=== PATIENT | male | born 1995 | race Caucasian/White ===

== ENCOUNTER 2024-01-14 18:06 | Emergency (ER) | payer OTHER ==
[~2024-01-14] VITALS: Ht 182.9 cm; Wt 63.6 kg
[2024-01-14] MEDS ORDERED: CLON0.2T (18:20)
[2024-01-14] MEDS ORDERED: TRAZ1TAB14 (18:20)
[2024-01-14] MEDS ORDERED: ONDA-284 (18:20)
[2024-01-14] MEDS ORDERED: FLUO-365 (18:20)
[2024-01-14] MEDS ORDERED: GABA-1171 (18:20)
[2024-01-14 23:00] VITALS: BP 135/81; TEMP 98; O2SAT 99
== END 2024-01-14 23:51 | disposition home or self-care (01) ==
LOC: M ED 18:06
DX: S92.325A Nondisplaced fracture of second metatarsal bone, left foot, initial encounter for closed fracture (principal); S92.332A Displaced fracture of third metatarsal bone, left foot, initial encounter for closed fracture; S92.342A Displaced fracture of fourth metatarsal bone, left foot, initial encounter for closed fracture; Y92.019 Unspecified place in single-family (private) house as the place of occurrence of the external cause; Y93.9 Activity, unspecified; Y99.9 Unspecified external cause status; W01.0XXA Fall on same level from slipping, tripping and stumbling without subsequent striking against object, initial encounter; F15.10 Other stimulant abuse, uncomplicated; Z88.8 Allergy status to other drugs, medicaments and biological substances; Z91.040 Latex allergy status; Z91.013 Allergy to seafood; Z79.899 Other long term (current) drug therapy

== ENCOUNTER → 2024-01-26 | Outpatient (CLI) | payer OTHER ==
[~2024-01-26] MED LIST: CLON0.2T; FLUO-365; GABA-1171; ONDA-284; TRAZ1TAB14
== END ==
LOC: M SOG 07:33
PROVIDERS: ATTEND Physician Assistant
DX: M79.672 Pain in left foot (principal)

== ENCOUNTER → 2024-03-15 | Outpatient (CLI) | payer OTHER | LOC: M SOG 07:54 | PROVIDERS: ATTEND Physician Assistant | DX: M79.672 Pain in left foot (principal) ==

== ENCOUNTER → 2024-03-22 | Outpatient (CLI) | payer OTHER | LOC: M SOG 07:52 | PROVIDERS: ATTEND Physician Assistant | DX: M79.672 Pain in left foot (principal) ==

== ENCOUNTER → 2024-04-10 | Outpatient (CLI) | payer OTHER | LOC: M SOG 07:38 | PROVIDERS: ATTEND Physician Assistant | DX: M79.672 Pain in left foot (principal); S92.325D Nondisplaced fracture of second metatarsal bone, left foot, subsequent encounter for fracture with routine healing; S92.345D Nondisplaced fracture of fourth metatarsal bone, left foot, subsequent encounter for fracture with routine healing; S92.335D Nondisplaced fracture of third metatarsal bone, left foot, subsequent encounter for fracture with routine healing ==

== ENCOUNTER 2024-05-15 23:31 | Emergency (ER) | payer OTHER ==
[~2024-05-15] VITALS: Ht 182.9 cm; Wt 81.8 kg
[2024-05-15] MEDS ORDERED: NALOXONE 2MG/2ML SYRINGE As Ordered ONE (23:44)
[2024-05-15] MEDS: NALOXONE INJ 0.4MG/1ML VIAL IV STA (23:44)
[2024-05-15] MEDS: NALOXONE 2MG/2ML SYRINGE IV STA (23:46)
[2024-05-16 00:11] LABS: BASO # 0.1 10^3/uL (0.0-0.2); BASO % 0.6 % (0.0-1.0); EOS # 0.3 10^3/uL (0.0-0.5); EOS % 2.5 % (0.0-3.0); HEMOGLOBIN 16.9 g/dl (13.5-17.5); LYMPH # 3.8 10^3/uL (1.5-5.0); LYMPH % 34.5 % (24.0-44.0); MEAN CORPUSCULAR HEMOGLOBIN 29.2 pg (27.0-33.0); MEAN CORPUSCULAR HGB CONC 34.5 g/dl (32.0-36.5); MEAN CORPUSCULAR VOLUME 84.6 fl (80.0-96.0); MONO # 0.8 10^3/uL (0.0-0.8); MONO % 7.4 % (2.0-8.0); NEUTROPHILS # 5.8 10^3/uL (1.5-8.5); NEUTROPHILS % 53.1 % (36.0-66.0); PLATELET COUNT, AUTOMATED 338 10^3/uL (150-450); RED BLOOD COUNT 5.79 10^6/uL (4.30-6.10); WHITE BLOOD COUNT 10.9 10^3/uL (4.0-10.0)
[2024-05-16 00:26] LABS: ETHYL ALCOHOL (ETHANOL) < 0.003 % (0.000-0.010)
[2024-05-16 00:28] LABS: ALBUMIN 4.1 G/DL (3.2-5.2); ALKALINE PHOSPHATASE 106 U/L (40-129); ALT/SGPT 15 U/L (7.0-40); AST/SGOT 10 U/L (<34); BILIRUBIN,DIRECT 0.1 MG/DL (<0.4); BILIRUBIN,TOTAL 0.4 MG/DL (0.3-1.2); BLOOD UREA NITROGEN 13 MG/DL (9-23); CALCIUM LEVEL 9.7 MG/DL (8.5-10.1); CARBON DIOXIDE LEVEL 29 MMOL/L (20-31); CHLORIDE LEVEL 100 MMOL/L (98-107); CREATININE FOR GFR 0.84 MG/DL (0.70-1.30); GLOMERULAR FILTRATION RATE > 60.0 (>60); GLUCOSE, FASTING 163 MG/DL (60-100); POTASSIUM SERUM 4.2 MMOL/L (3.5-5.1); SALICYLATE LEVEL < 3.0 MG/DL (<30); SODIUM LEVEL 137 MMOL/L (136-145); TOTAL PROTEIN 8.1 G/DL (5.7-8.2)
[2024-05-16 00:30] LABS: THYROID STIMULATING HORMONE 0.866 uIU/ML (0.55-4.78)
[2024-05-16 00:37] LABS: CPK CREATINE PHOSPHOKINASE 95 U/L (46-171)
[2024-05-16] MEDS: NS (Normal Saline) 0.9% 1,000 ML IV ONE (01:15)
[2024-05-16 07:15] VITALS: BP 120/72; TEMP 98.5; O2SAT 99
== END 2024-05-16 08:08 | disposition home or self-care (01) ==
LOC: M ED 23:31
DX: F19.10 Other psychoactive substance abuse, uncomplicated (principal); R00.1 Bradycardia, unspecified; I44.1 Atrioventricular block, second degree; F32.A Depression, unspecified; F41.9 Anxiety disorder, unspecified; Z91.040 Latex allergy status; Z88.8 Allergy status to other drugs, medicaments and biological substances; Z91.013 Allergy to seafood; Z79.899 Other long term (current) drug therapy
CPT/HCPCS: 36415; 70450; 80048; 80076; 80143; 82077; 82550; 84443; 85025; 93005; 93041; 94760; 96374; 99285; J2310

== ENCOUNTER 2024-08-24 23:22 | Emergency (ER) | payer OTHER ==
[2024-08-25 00:13] LABS: BASO # 0.1 10^3/uL (0.0-0.2); BASO % 0.7 % (0.0-1.0); EOS # 0.1 10^3/uL (0.0-0.5); EOS % 0.6 % (0.0-3.0); HEMATOCRIT 49.7 % (42.0-52.0); HEMOGLOBIN 16.9 g/dl (13.5-17.5); LYMPH # 2.7 10^3/uL (1.5-5.0); LYMPH % 18.4 % (24.0-44.0); MEAN CORPUSCULAR VOLUME 85.2 fl (80.0-96.0); MONO # 1.2 10^3/uL (0.0-0.8); MONO % 7.9 % (2.0-8.0); NEUTROPHILS # 10.4 10^3/uL (1.5-8.5); PLATELET COUNT, AUTOMATED 329 10^3/uL (150-450); RED BLOOD COUNT 5.83 10^6/uL (4.30-6.10); WHITE BLOOD COUNT 14.7 10^3/uL (4.0-10.0)
[2024-08-25 00:36] LABS: ETHYL ALCOHOL (ETHANOL) < 0.003 % (0.000-0.010)
[2024-08-25 00:37] LABS: ALBUMIN 4.4 G/DL (3.2-5.2); ALKALINE PHOSPHATASE 125 U/L (40-129); ALT/SGPT 41 U/L (7.0-40); AST/SGOT 27 U/L (<34); BILIRUBIN,DIRECT < 0.1 MG/DL (<0.4); BILIRUBIN,TOTAL 0.3 MG/DL (0.3-1.2); BLOOD UREA NITROGEN 17 MG/DL (9-23); CALCIUM LEVEL 9.6 MG/DL (8.5-10.1); CARBON DIOXIDE LEVEL 25 MMOL/L (20-31); CHLORIDE LEVEL 108 MMOL/L (98-107); CPK CREATINE PHOSPHOKINASE 160 U/L (46-171); CREATININE FOR GFR 0.61 MG/DL (0.70-1.30); GLOMERULAR FILTRATION RATE > 90.0 (>60); GLUCOSE, FASTING 129 MG/DL (60-100); POTASSIUM SERUM 4.6 MMOL/L (3.5-5.1); SALICYLATE LEVEL < 3.0 MG/DL (<30); SODIUM LEVEL 140 MMOL/L (136-145); TOTAL PROTEIN 8.3 G/DL (5.7-8.2)
[2024-08-25] MEDS: ONDANSETRON 4MG 2ML VIAL IV ONE (01:00)
== END 2024-08-25 02:07 | disposition left against medical advice (07) ==
LOC: EDBD 23:22 → M ED 23:22
DX: F19.10 Other psychoactive substance abuse, uncomplicated (principal); F32.A Depression, unspecified; F41.9 Anxiety disorder, unspecified; F17.210 Nicotine dependence, cigarettes, uncomplicated; Z88.8 Allergy status to other drugs, medicaments and biological substances; Z91.013 Allergy to seafood; Z91.040 Latex allergy status; Z79.899 Other long term (current) drug therapy; Z53.9 Procedure and treatment not carried out, unspecified reason
CPT/HCPCS: 36415; 80048; 80076; 80143; 82077; 82550; 84443; 85025; 93005; 93041; 94760; 96374; 99285; J2405